=== PATIENT | female | born 1960 | race African-American/Black ===

== ENCOUNTER 2018-11-16 11:31 | Day surgery (SDC) | payer OTHER | END 2018-11-16 17:38 | disposition home or self-care (01) | LOC: FASU 11:31 ==

== ENCOUNTER 2020-11-13 04:54 | Day surgery (SDC) | payer OTHER ==
[2020-11-04 18:31] VITALS: BMI 28.4
[2020-11-13] MEDS ORDERED: PROPOFOL 20 ML ONE (07:43)
[2020-11-13] MEDS ORDERED: LIDOCAINE HCL/PF 2% SDV 5ML VIAL ONE (07:43)
[2020-11-13] MEDS ORDERED: KETOROLAC TROMETHAMINE 30 MG/1 ML VIAL ONE (07:43)
[2020-11-13] MEDS ORDERED: DEXAMETHASONE SOD PHOSPHATE 4 MG/1 ML VIAL ONE (07:43)
[2020-11-13] MEDS ORDERED: MIDAZOLAM HCL 2 MG/2 ML SINGLE DOSE VIAL ONE (07:43)
[2020-11-13] MEDS ORDERED: ONDANSETRON 4 MG/2 ML VIAL ONE (07:43)
[2020-11-13] MEDS ORDERED: ceFAZolin SODIUM 1 GM VIAL IVPB ONE (08:15)
[2020-11-13] MEDS ORDERED: TRIAMCINOLONE ACET 40MG/1ML VIAL ONE (08:53)
[2020-11-13] MEDS ORDERED: BUPIVACAINE HCL/PF 0.25% (2.5MG/ML) 10 ML VIAL ONE (08:53)
[2020-11-13] MEDS ORDERED: oxyCODONE HCL 5 MG TABLET PO PRN ×2 (09:07)
[2020-11-13] MEDS ORDERED: ONDANSETRON 4 MG/2 ML VIAL IVPUSH PRN (09:07)
[2020-11-13] MEDS ORDERED: LACTATED RINGERS SOLUTION 1,000 ML IV SCH (09:15)
[2020-11-13] MEDS ORDERED: PATIENT'S OWN MEDICATION (NON-FORMULARY) (Dulaglutide [Trulicity] 0.75 MG/0.5 ML Pen.Injct SQ SCH (10:45)
[2020-11-13 11:36] VITALS: BP 128/68; PULSE 92; TEMP 97.8
[2020-11-13] MEDS ORDERED: metFORMIN HCL 500 MG TABLET (FP) PO SCH (16:30)
[2020-11-13] MEDS ORDERED: LATANOPROST 0.005% OPHTH SOLN 2.5ML BOTTLE OU SCH (22:00)
[2020-11-13] MEDS ORDERED: ATORVASTATIN CA 10 MG TABLET (FP) PO SCH (22:00)
[2020-11-13] MEDS ORDERED: LISINOPRIL 20 MG TABLET PO SCH (22:00)
[2020-11-13] MEDS ORDERED: CHOLECALCIFEROL (VIT D3) 1,000 UNIT (25 MCG) TABLET PO SCH (22:00)
[2020-11-14] MEDS ORDERED: ASPIRIN COATED 81 MG TABLET.EC PO SCH (10:00)
[2020-11-14] MEDS ORDERED: PATIENT'S OWN MEDICATION (NON-FORMULARY) (Empagliflozin [Jardiance] 10 MG Tablet) PO SCH (10:00)
== END 2020-11-13 11:37 | disposition home or self-care (01) ==
LOC: JASU-SURG 04:54
PROVIDERS: ATTEND Orthopaedic Surgery Orthopaedic Surgery of the Spine
PROC: 0SCC4ZZ Extirpation of Matter from Right Knee Joint, Percutaneous Endoscopic Approach (ICD-10-PCS; principal; 2020-11-13 08:44)
DX: M23.41 Loose body in knee, right knee (principal); M23.42 Loose body in knee, left knee; M17.0 Bilateral primary osteoarthritis of knee; I10 Essential (primary) hypertension; E11.9 Type 2 diabetes mellitus without complications
CPT/HCPCS: 82962; 94760

== ENCOUNTER 2021-03-09 22:45 | Day surgery (SDC) | payer OTHER ==
[2021-02-17 17:11] VITALS: BMI 27.7
[2021-03-09] MEDS: oxyCODONE HCL 5 MG TABLET PO PRN ×3 (19:00→23:53)
[2021-03-09] MEDS: CEFAZOLIN 2 GM/D5W 2 GM/50 ML ML IVPB SCH (20:24)
[2021-03-09] MEDS: ASPIRIN COATED 81 MG TABLET.EC PO SCH (21:50)
[2021-03-09] MEDS: SENNOSIDES/DOCUSATE COMBO (SENNA PLUS) TABLET (UD) PO SCH (21:50)
[2021-03-09] MEDS: ATORVASTATIN CA 10 MG TABLET (FP) PO SCH (21:50)
[2021-03-09] MEDS: CELECOXIB 200 MG CAPSULE PO SCH (21:50)
[2021-03-09] MEDS: LISINOPRIL 20 MG TABLET PO SCH (21:50)
[2021-03-09] MEDS: LATANOPROST 0.005% OPHTH SOLN 2.5ML BOTTLE OU SCH (21:51)
[~2021-03-09 22:45] MED LIST: ASPIRIN 325 MG TABLET PO SCH; BENZOIN 118 ML SPRAY.PUMP TP ONE; BUPIVACAINE HCL 50 ML ONE; BUPIVACAINE HCL/PF 0.5% (5MG/ML) 10 ML VIAL ONE; BUPIVACAINE LIPOSOME/PF (EXPAREL) 266 MG/20 ML VIAL ONE; LACTATED RINGERS SOLUTION 1,000 ML IV SCH; MAG HYDROX/AL HYDROX/SIMETH 30 ML UNIT-DOSE CUP PO PRN; MAGNESIUM HYDROX 2400MG/30ML ORAL SUSPENSION 30 ML CUP PO PRN; MIDAZOLAM HCL 2 MG/2 ML SINGLE DOSE VIAL ONE; ONDANSETRON 4 MG/2 ML VIAL IVPUSH PRN; PATIENT'S OWN MEDICATION (NON-FORMULARY) (Dulaglutide [Trulicity] 0.75 MG/0.5 ML Pen.Injct SQ SCH; PROMETHAZINE HCL 25 MG/1 ML VIAL IVPUSH PRN; PROPOFOL 20 ML ONE; ceFAZolin SODIUM 1 GM VIAL ONE
[2021-03-10] MEDS ORDERED: VANCOMYCIN 1 GM in D5W (PRE-DOCKED) 1,000 MG/250 ML IVPB SCH ×2 (01:00→10:00)
[2021-03-10] MEDS: CEFAZOLIN 2 GM/D5W 2 GM/50 ML ML IVPB SCH (01:12)
[2021-03-10] MEDS: oxyCODONE HCL 5 MG TABLET PO PRN ×4 (03:27→22:05)
[2021-03-10] MEDS: metFORMIN HCL 500 MG TABLET (FP) PO SCH ×2 (07:08→17:22)
[2021-03-10 07:53] LABS: HEMATOCRIT 34.7 % (32.4-45.2); HEMOGLOBIN 11.6 GM/dl (10.7-15.3); MCH 26.5 pg (25.7-33.7); MCHC 33.3 g/dl (32.0-36.0); MEAN CELL VOLUME 79.6 fl (80-96); MEAN PLT VOLUME 9.5 fl (7.5-11.1); PLATELET COUNT 245 10^3/uL (134-434); RBC 4.36 M/mm3 (3.60-5.2); RDW 13.5 % (11.6-15.6); WHITE BLOOD COUNT 6.4 K/mm3 (4.0-10.8)
[2021-03-10 08:08] LABS: CALCIUM 8.8 mg/dl (8.5-10); CREATININE 0.7 mg/dl (0.55-1.3)
[2021-03-10] MEDS: ASPIRIN COATED 81 MG TABLET.EC PO SCH ×2 (09:09→22:04)
[2021-03-10] MEDS: CELECOXIB 200 MG CAPSULE PO SCH ×2 (09:09→22:04)
[2021-03-10] MEDS: PANTOPRAZOLE 40 MG TABLET PO SCH (09:09)
[2021-03-10] MEDS: SENNOSIDES/DOCUSATE COMBO (SENNA PLUS) TABLET (UD) PO SCH ×2 (09:10→22:04)
[2021-03-10] MEDS: PATIENT'S OWN MEDICATION (NON-FORMULARY) (Empagliflozin [Jardiance] 10 MG Tablet) PO SCH (09:10)
[2021-03-10] MEDS: INSULIN (NOVOLOG) ASPART 100 UNITS/ML 10ML VIAL SQ SCH ×2 (17:23→22:10)
[2021-03-10] MEDS: ATORVASTATIN CA 10 MG TABLET (FP) PO SCH (22:04)
[2021-03-10] MEDS: LISINOPRIL 20 MG TABLET PO SCH (22:06)
[2021-03-10] MEDS: LATANOPROST 0.005% OPHTH SOLN 2.5ML BOTTLE OU SCH (22:06)
[2021-03-11] MEDS: INSULIN (NOVOLOG) ASPART 100 UNITS/ML 10ML VIAL SQ SCH ×4 (07:21→21:39)
[2021-03-11 07:49] LABS: HEMATOCRIT 32.5 % (32.4-45.2); HEMOGLOBIN 10.7 GM/dl (10.7-15.3); MCH 26.3 pg (25.7-33.7); MCHC 32.9 g/dl (32.0-36.0); MEAN CELL VOLUME 79.9 fl (80-96); MEAN PLT VOLUME 9.6 fl (7.5-11.1); PLATELET COUNT 227 10^3/uL (134-434); RBC 4.08 M/mm3 (3.60-5.2); RDW 13.2 % (11.6-15.6); WHITE BLOOD COUNT 6.7 K/mm3 (4.0-10.8)
[2021-03-11] MEDS: metFORMIN HCL 500 MG TABLET (FP) PO SCH (08:35)
[2021-03-11] MEDS: oxyCODONE HCL 5 MG TABLET PO PRN (08:36)
[2021-03-11] MEDS ORDERED: PT OWN MED DRAWER 7, Y5N ONE (08:43)
[2021-03-11] MEDS: PATIENT'S OWN MEDICATION (NON-FORMULARY) (Empagliflozin [Jardiance] 10 MG Tablet) PO SCH (10:35)
[2021-03-11] MEDS: CELECOXIB 200 MG CAPSULE PO SCH ×2 (10:35→21:39)
[2021-03-11] MEDS: ASPIRIN COATED 81 MG TABLET.EC PO SCH ×2 (10:35→21:39)
[2021-03-11] MEDS: PANTOPRAZOLE 40 MG TABLET PO SCH (10:36)
[2021-03-11] MEDS: SENNOSIDES/DOCUSATE COMBO (SENNA PLUS) TABLET (UD) PO SCH ×2 (10:36→21:38)
[2021-03-11] MEDS ORDERED: POLYETHYLENE GLYCOL (HEALTHYLAX) 3350 17 GM PACKET PO ONE (16:30)
[2021-03-11] MEDS: LISINOPRIL 20 MG TABLET PO SCH (21:39)
[2021-03-11] MEDS: ATORVASTATIN CA 10 MG TABLET (FP) PO SCH (21:39)
[2021-03-11] MEDS: LATANOPROST 0.005% OPHTH SOLN 2.5ML BOTTLE OU SCH (21:40)
[2021-03-12] MEDS: INSULIN (NOVOLOG) ASPART 100 UNITS/ML 10ML VIAL SQ SCH (06:16)
[2021-03-12] MEDS: metFORMIN HCL 500 MG TABLET (FP) PO SCH (06:16)
[2021-03-12 06:49] VITALS: BP 114/67; PULSE 95; TEMP 98.4
[2021-03-12] MEDS: PANTOPRAZOLE 40 MG TABLET PO SCH (09:19)
[2021-03-12] MEDS: SENNOSIDES/DOCUSATE COMBO (SENNA PLUS) TABLET (UD) PO SCH (09:19)
[2021-03-12] MEDS: CELECOXIB 200 MG CAPSULE PO SCH (09:20)
[2021-03-12] MEDS: ASPIRIN COATED 81 MG TABLET.EC PO SCH (09:20)
== END 2021-03-12 11:12 | disposition home or self-care (01) ==
LOC: SUATTDRO 22:45 → FM/S 22:45 → FASUSAT 22:45 → FM/S 23:40 → UNDOADMIN 23:42 → FASUSAT 03-12 11:12
PROVIDERS: ATTEND Nurse Practitioner Acute Care
PROC: 0SRD0J9 Replacement of Left Knee Joint with Synthetic Substitute, Cemented, Open Approach (ICD-10-PCS; principal; 2021-03-09 13:41)
DX: M17.12 Unilateral primary osteoarthritis, left knee (principal); I10 Essential (primary) hypertension; E78.5 Hyperlipidemia, unspecified; E11.9 Type 2 diabetes mellitus without complications; Z79.4 Long term (current) use of insulin; Z79.84 Long term (current) use of oral hypoglycemic drugs
CPT/HCPCS: 27447; C1776; 36415; 73560-TC-LT-FY; 80048; 82962; 85027; 94760; 97010-GP; 97116-GP; 97162-GP

== ENCOUNTER 2021-10-07 05:57 | Day surgery (SDC) | payer OTHER ==
[2021-09-21 14:07] VITALS: BMI 27.7
[2021-10-07] MEDS ORDERED: MIDAZOLAM HCL 2 MG/2 ML SINGLE DOSE VIAL ONE ×2 (07:20→11:41)
[2021-10-07] MEDS ORDERED: BUPIVACAINE LIPOSOME/PF (EXPAREL) 266 MG/20 ML VIAL ONE (07:21)
[2021-10-07] MEDS ORDERED: BUPIVACAINE HCL/PF 0.5% (5MG/ML) 10 ML VIAL ONE (07:21)
[2021-10-07] MEDS ORDERED: PROPOFOL 20 ML ONE ×3 (07:34→10:41)
[2021-10-07] MEDS ORDERED: SUCCINYLCHOLINE CHLORIDE 200 MG/10 ML SYRINGE ONE (07:34)
[2021-10-07] MEDS ORDERED: ONDANSETRON 4 MG/2 ML VIAL ONE (09:12)
[2021-10-07] MEDS ORDERED: DEXAMETHASONE SOD PHOSPHATE 4 MG/1 ML VIAL ONE (09:12)
[2021-10-07] MEDS ORDERED: VANCOMYCIN 1,000 MG VIAL (RESTRICTED TO ID ONLY) ONE (09:12)
[2021-10-07] MEDS ORDERED: TRANEXAMIC ACID 1000 MG/10 ML VIAL ONE ×2 (09:12→11:07)
[2021-10-07] MEDS ORDERED: ceFAZolin SODIUM 1 GM VIAL ONE ×4 (09:12→23:09)
[2021-10-07] MEDS ORDERED: ONDANSETRON 4 MG/2 ML VIAL IVPUSH PRN (12:19)
[2021-10-07] MEDS ORDERED: MAGNESIUM HYDROX 2400MG/30ML ORAL SUSPENSION 30 ML CUP PO PRN (12:19)
[2021-10-07] MEDS ORDERED: MAG HYDROX/AL HYDROX/SIMETH 30 ML UNIT-DOSE CUP PO PRN (12:19)
[2021-10-07] MEDS ORDERED: ACETAMINOPHEN 1000 MG/100 ML BAG IVPB ONE (12:27)
[2021-10-07] MEDS ORDERED: oxyCODONE HCL 5 MG TABLET PO PRN (12:27)
[2021-10-07] MEDS ORDERED: LACTATED RINGERS SOLUTION 1,000 ML IV SCH (12:30)
[2021-10-07] MEDS ORDERED: ACETAMINOPHEN INJECTION 100 ML IVPB ONE (12:57)
[2021-10-07] MEDS: KETOROLAC TROMETHAMINE 30 MG/1 ML VIAL IVPUSH SCH ×2 (13:00→20:06)
[2021-10-07] MEDS: ACETAMINOPHEN 500 MG TABLET (FP) PO SCH ×2 (13:05→20:09)
[2021-10-07] MEDS: oxyCODONE HCL 5 MG TABLET PO PRN (15:45)
[2021-10-07] MEDS ORDERED: DEXTROSE 5%-WATER - 50 ML IVPB ONE ×2 (16:51→23:09)
[2021-10-07] MEDS: metFORMIN HCL 500 MG TABLET (FP) PO SCH (17:24)
[2021-10-07] MEDS: CEFAZOLIN 2 GM in DEXTROSE 5%-WATER - 50 ML IVPB SCH ×2 (17:25→23:14)
[2021-10-07] MEDS: LISINOPRIL 20 MG TABLET PO SCH (21:23)
[2021-10-07] MEDS: ATORVASTATIN CA 10 MG TABLET (FP) PO SCH (21:23)
[2021-10-07] MEDS: SENNOSIDES/DOCUSATE COMBO (SENNA PLUS) TABLET (UD) PO SCH (21:23)
[2021-10-07] MEDS: CELECOXIB 200 MG CAPSULE PO SCH (21:23)
[2021-10-07] MEDS: ASPIRIN COATED 81 MG TABLET.EC PO SCH (21:23)
[2021-10-07] MEDS: LATANOPROST 0.005% OPHTH SOLN 2.5ML BOTTLE OU SCH (21:24)
[2021-10-07] MEDS: oxyCODONE HCL 10 MG SUSTAINED ACTING TABLET PO SCH (21:31)
[2021-10-07] MEDS: INSULIN SLIDING SCALE (NOVOLOG) 1 VIAL SQ SCH (21:33)
[2021-10-07] MEDS ORDERED: PATIENT'S OWN MEDICATION (NON-FORMULARY) (Calcium Carb, Citrate/Vit D3 [Calcium + D3 Er Ta PO SCH (22:00)
[2021-10-07] MEDS ORDERED: DOCUSATE SODIUM 100 MG CAPSULE (FP) PO SCH (22:00)
[2021-10-08] MEDS: ACETAMINOPHEN 500 MG TABLET (FP) PO SCH ×4 (02:13→21:41)
[2021-10-08] MEDS ORDERED: ceFAZolin SODIUM 1 GM VIAL ONE (03:18)
[2021-10-08] MEDS ORDERED: DEXTROSE 5%-WATER - 50 ML IVPB ONE (03:18)
[2021-10-08] MEDS: CEFAZOLIN 2 GM in DEXTROSE 5%-WATER - 50 ML IVPB SCH (05:31)
[2021-10-08] MEDS ORDERED: KETOROLAC TROMETHAMINE 30 MG/1 ML VIAL IVPUSH ONE (05:40)
[2021-10-08] MEDS: INSULIN SLIDING SCALE (NOVOLOG) 1 VIAL SQ SCH ×4 (06:46→23:34)
[2021-10-08] MEDS: metFORMIN HCL 500 MG TABLET (FP) PO SCH ×2 (08:34→17:23)
[2021-10-08] MEDS ORDERED: PATIENT'S OWN MEDICATION (NON-FORMULARY) (Empagliflozin [Jardiance] 10 MG Tablet) PO SCH (10:00)
[2021-10-08] MEDS ORDERED: PATIENT'S OWN MEDICATION (NON-FORMULARY) (Bimatoprost [Lumigan] 7.5 ML Drops) OU SCH (10:00)
[2021-10-08] MEDS: oxyCODONE HCL 10 MG SUSTAINED ACTING TABLET PO SCH ×2 (10:10→21:41)
[2021-10-08] MEDS: SENNOSIDES/DOCUSATE COMBO (SENNA PLUS) TABLET (UD) PO SCH ×2 (10:10→21:41)
[2021-10-08] MEDS: ASPIRIN COATED 81 MG TABLET.EC PO SCH ×2 (10:10→21:41)
[2021-10-08] MEDS: CELECOXIB 200 MG CAPSULE PO SCH ×2 (10:10→21:41)
[2021-10-08] MEDS: PANTOPRAZOLE 40 MG TABLET PO SCH (10:11)
[2021-10-08] MEDS: MAGNESIUM OXIDE 400 MG TABLET (FP) PO SCH (10:11)
[2021-10-08] MEDS: valACYclovir HCL 500 MG TABLET (FP) PO SCH (10:11)
[2021-10-08] MEDS: MULTIVITAMINS (DAILY MVI) TABLET (FP) PO SCH (10:14)
[2021-10-08 12:56] LABS: CALCIUM 8.3 mg/dl (8.5-10); CREATININE 0.9 mg/dl (0.55-1.3)
[2021-10-08 13:42] LABS: HEMATOCRIT 31.8 % (32.4-45.2); HEMOGLOBIN 10.8 G/dL (10.7-15.3); MCH 26.3 pg (25.7-33.7); MCHC 33.9 g/dl (32.0-36.0); MEAN CELL VOLUME 77.6 fl (80-96); PLATELET COUNT 244.3 10^3/uL (134-434); RDW 16.2 % (11.6-15.6); WHITE BLOOD COUNT 6.5 10^3/uL (4.0-10.8)
[2021-10-08] MEDS: oxyCODONE HCL 5 MG TABLET PO PRN (17:27)
[2021-10-08] MEDS: ATORVASTATIN CA 10 MG TABLET (FP) PO SCH (21:41)
[2021-10-08] MEDS: LISINOPRIL 20 MG TABLET PO SCH (21:42)
[2021-10-08] MEDS: LATANOPROST 0.005% OPHTH SOLN 2.5ML BOTTLE OU SCH (21:44)
[2021-10-09] MEDS: metFORMIN HCL 500 MG TABLET (FP) PO SCH (06:26)
[2021-10-09] MEDS: ACETAMINOPHEN 500 MG TABLET (FP) PO SCH ×2 (06:33→08:30)
[2021-10-09] MEDS: INSULIN SLIDING SCALE (NOVOLOG) 1 VIAL SQ SCH (06:33)
[2021-10-09 08:19] LABS: HEMATOCRIT 29.3 % (32.4-45.2); MCH 26.7 pg (25.7-33.7); MCHC 34.2 g/dl (32.0-36.0); MEAN CELL VOLUME 78.1 fl (80-96); MEAN PLT VOLUME 9.9 fl (7.5-11.1); PLATELET COUNT 225.2 10^3/uL (134-434); RBC 3.75 10^6/uL (3.60-5.2); RDW 16.8 % (11.6-15.6); WHITE BLOOD COUNT 5.3 10^3/uL (4.0-10.8)
[2021-10-09] MEDS: PANTOPRAZOLE 40 MG TABLET PO SCH (09:43)
[2021-10-09] MEDS: SENNOSIDES/DOCUSATE COMBO (SENNA PLUS) TABLET (UD) PO SCH (09:43)
[2021-10-09] MEDS: MAGNESIUM OXIDE 400 MG TABLET (FP) PO SCH (09:43)
[2021-10-09] MEDS: MULTIVITAMINS (DAILY MVI) TABLET (FP) PO SCH (09:43)
[2021-10-09] MEDS: ASPIRIN COATED 81 MG TABLET.EC PO SCH (09:43)
[2021-10-09] MEDS: CELECOXIB 200 MG CAPSULE PO SCH (09:43)
[2021-10-09] MEDS: valACYclovir HCL 500 MG TABLET (FP) PO SCH (09:43)
[2021-10-09] MEDS: oxyCODONE HCL 10 MG SUSTAINED ACTING TABLET PO SCH (09:43)
[2021-10-09 14:10] VITALS: BP 115/58; PULSE 105; TEMP 98.3
[2021-10-11] MEDS ORDERED: PATIENT'S OWN MEDICATION (NON-FORMULARY) (Dulaglutide [Trulicity] 0.75 MG/0.5 ML Pen.Injct SQ SCH (10:00)
== END 2021-10-09 16:00 | disposition home or self-care (01) ==
LOC: FASUSAT 05:57 → FM/S 15:13 → FASUSAT 10-09 16:00
PROVIDERS: ATTEND Orthopaedic Surgery Orthopaedic Surgery of the Spine
PROC: 0SRC0J9 Replacement of Right Knee Joint with Synthetic Substitute, Cemented, Open Approach (ICD-10-PCS; principal; 2021-10-07 09:51)
DX: M17.11 Unilateral primary osteoarthritis, right knee (principal)
CPT/HCPCS: 27447; C1776; 36415; 73560-TC-RT-FY; 80048; 82962; 85027; 88305-TC; 88311-TC; 94760; 97116-GP; 97162-GP